=== PATIENT | male | born 1930 | race Caucasian/White ===

== ENCOUNTER 2016-07-19 12:25 | Inpatient (IN) | payer OTHER ==
--- NOTE | ~2016-07-19 | CN ---
Consultation Report [facility] [address] [facility] [place]. [address] NAME: VALENCIA LI : 30 STATUS : ADM IN [facility]#: [id number] AGE: 86 ADM/REG DATE : 07/19/16 MR#: [id number] REPORT SERV DATE: 07/21/16 DICTATED BY: ERASMO MENDEZ DATE: 07/21/16 REPORT STATUS : Draft TRANSCRIBED BY: MODL DATE: 07/21/16 DATE OF CONSULTATION: HISTORY OF PRESENT ILLNESS: 86-year-old white male, patient of Dr. Kelly, who is supposed to have a lung biopsy done for concern of lung cancer. The patient has been having pneumonia off and on since the end of March. He has been on several rounds of antibiotics without complete resolution. He comes to the hospital because of weakness, some weight loss, as well as some shortness of breath and cough. He does have a long-term smoking history of at least 30 years, as much as one pack per day, but quit back in 1989. He has had asbestos exposure working, on-the-job exposure. REVIEW OF SYSTEMS: No fevers, chills, or sweats. No vomiting or belly pain. No rash. History is somewhat limited due to patient not being a great historian. PAST MEDICAL HISTORY: Coronary artery disease, CABG, stroke, dyslipidemia, possible COPD, abdominal aortic aneurysm, hypertension, pneumonia, skin cancer. PAST SURGICAL HISTORY: Cataract surgery, CABG, bilateral inguinal hernia repair, lumbosacral back fusion, melanoma removal. FAMILY HISTORY: Coronary artery disease, cancer, hypertension, diabetes, and stroke. ALLERGIES: LEVAQUIN. HOME MEDICATIONS: Reviewed. SOCIAL HISTORY: Former smoker. No alcohol. No drugs. The patient is . PHYSICAL EXAMINATION: VITAL SIGNS: Per nursing flow sheet. GENERAL: No acute distress. Very hard of hearing. HEENT: Normocephalic, atraumatic. NECK: No palpable lymph nodes or masses. Trachea midline. HEART: Regular rate and rhythm. No murmurs. LUNGS: Diminished bilaterally. No wheezes. No accessory muscle use. GI: Soft, nontender, nondistended. EXTREMITIES: No edema, cyanosis, or clubbing. NEURO: GCS 15. LABORATORIES: Radiology studies reviewed. ASSESSMENT AND PLAN: 1. Right pleural effusion. Consultation Report [address] [address] NAME: VALENCIA LI : 30 STATUS : ADM IN [facility]#: [id number] AGE: 86 ADM/REG DATE : 07/19/16 MR#: [id number] REPORT SERV DATE: 07/21/16 DICTATED BY: ERASMO MENDEZ DATE: 07/21/16 REPORT STATUS : Draft TRANSCRIBED BY: MODL DATE: 07/21/16 2. Right lung mass-possible post-obstructive pneumonia, possible lung mass. 3. Mediastinal and hilar lymphadenopathy. 4. Elevated ionized calcium. The patient apparently is on Plavix as an outpatient. He has recently stopped the medicine, so we will have to hold off for several days before considering bronchoscopy because of bleeding risk. However, the patient does have a right-sided pleural effusion and we will proceed with thoracentesis. Risks and benefits of the procedure discussed with the patient. The patient is agreeable with the procedure. We will plan on doing this tomorrow. We will send off for labs routine, culture and cytology. We will send off a serum lab for parathyroid hormone-related peptide to see if there is any type of paraneoplastic syndrome. The patient is on empiric antibiotics per the hospitalist. We will continue to follow. CEP/MODL Erasmo Mendez DO / [id number] CC: MD Shayan Matias PA-C
--- NOTE | ~2016-07-19 | DS ---
Discharge Summary [facility] [address] [place]. [address] NAME: VALENCIA LI : 30 STATUS : DIS IN PAT#: [id number] AGE: 86 ADM/REG DATE : 07/19/16 MR#: [id number] REPORT SERV DATE: 07/24/16 DICTATED BY: МАРИЯ JEAN-BAPTISTE DATE: 07/23/16 REPORT STATUS : Draft TRANSCRIBED BY: MODL DATE: 07/23/16 ADMISSION DATE: 07/19/2016 DISCHARGE DATE: 07/23/2016 CHIEF COMPLAINT ON ADMISSION: "Pneumonia." DISCHARGING DIAGNOSES: 1. Stage IV lung cancer. 2. Small pleural effusion with pleural fluid positive for malignancy. 3. Pneumonia, possible postobstructive process. 4. Mild hypercalcemia, which resolved with IV resuscitation. 5. History of coronary artery disease, CABG. 6. Severe chronic obstructive pulmonary disease with hypoxic respiratory failure. HISTORY OF PRESENT ILLNESS: Please see full H and P by Dr. Arnulfo Garza for details regarding initial presentation. HOSPITAL COURSE: 1. Stage IV lung cancer of the right lung. The patient was admitted to the hospital with possible lung mass. He was scheduled to undergo an outpatient bronchoscopy after Plavix washout. Here, he did have a CT scan of chest, abdomen, and pelvis after discussion with Dr. Gonzalez from Oncology, who family chooses to follow up with. The CT of chest, abdomen, and pelvis with contrast did show small pleural effusion. Pulmonary Medicine was consulted. He did have a thoracentesis on 07/22/2016, which 600 mL of yellow fluid was removed. This did not on visual inspection appear malignant, thus he was scheduled for bronchoscopy today. However, the patient's pleural fluid was noted to be positive for malignant cells today. Bronchoscopy was aborted after airway infection. At this point, the patient will follow up next week with Dr. Gonzalez in the office after final pathology had resulted and the patient can be addressed by Dr. Gonzalez regarding further plans. In the interim, he will be discharged home with home health to improve functional status and continue to maintain the patient's current strength. I have had long discussions with the patient regarding options as well as plans to follow up with Dr. Gonzalez that will be arranged. 2. Severe COPD with hypoxic respiratory failure. The patient will follow up with his rn stars, Dr. Kelly as an outpatient. 3. Possible postobstructive process. On visual exam, it does not appear that there was an obvious obstruction. He did have possible pneumonia on chest x-ray and CT. He does have BAL cultures cooking. He was treated with ceftriaxone and azithromycin here after discussion with Dr. Mendez given the patient's allergy to Levaquin, and we will treat him for a full course as an outpatient with Augmentin. Blood cultures here have been negative. 4. Mild hypercalcemia on admission. The patient calcium has resolved to normal after IV fluid resuscitation. 5. History of CABG and coronary artery disease. The patient will be resumed on aspirin and Plavix at the time of discharge. 6. Hypertension. The patient's blood pressure is in the 150s on admission. During this Discharge Summary [address] [address] NAME: VALENCIA LI : 30 STATUS : DIS IN PAT#: [id number] AGE: 86 ADM/REG DATE : 07/19/16 MR#: [id number] REPORT SERV DATE: 07/24/16 DICTATED BY: МАРИЯ JEAN-BAPTISTE DATE: 07/23/16 REPORT STATUS : Draft TRANSCRIBED BY: MODSonia DATE: 07/23/16 hospitalization, he did have elevated blood pressures, this may be related to steroids. Recommend outpatient followup instead of starting him on blood pressure medication at this time. DISCHARGE MEDICATIONS: Atorvastatin 40 mg daily, prednisone taper, Augmentin 875 for five days p.o. b.i.d., aspirin 81 mg, Plavix 75 mg daily. Followup will be with Dr. Kelly and Dr. Gonzalez. PERTINENT LABORATORY DATA: White blood cell count 9.7, last checked on the with hemoglobin 11.9, platelet count of 242. BMP grossly unremarkable. PERTINENT IMAGING: In this admission: 1. CT of chest, abdomen, and pelvis as well with contrast, impression:. a. Large irregular 9 x 8 cm mass-like consolidation in the central posterior right upper lobe with areas of extension into the right middle and superior segment of the right lower lobes. It is unclear how much of this represents true malignant mass versus areas of pneumonic consolidation. b. Free-flowing right small pleural effusion. c. Mild right paratracheal mediastinal adenopathy concerning for N2 disease and upper limits of normal, but potentially involved right supraclavicular lymph nodes, concerning for possible N3 disease. d. Severe COPD. e. [id number] aortic valvular calcifications without aortic aneurysm. Severe aortic atherosclerosis. 2. CT of abdomen and pelvis:. a. No evidence of intraabdominal or pelvic metastatic disease. b. Small quantity of pelvic ascites of uncertain etiology. c. Diffuse colonic diverticulosis without diverticulitis. d. Small infrarenal abdominal aortic aneurysm of 3.7 cm. Time spent on this discharge including discussion with Dr. Mendez and Dr. Gonzalez is greater than 30 minutes. DNK/MODSonia Мария Jean-Baptiste MD / [id number] CC: MD Shayan Matias PA-C
--- NOTE | ~2016-07-19 | OP ---
Record Of Operation [facility] [address] [address] NAME: VALENCIA LI : 30 STATUS : ADM IN PAT#: [id number] AGE: 86 ADM/REG DATE : 07/19/16 MR#: [id number] REPORT SERV DATE: 07/23/16 DICTATED BY: ERASMO MENDEZ DATE: 07/23/16 REPORT STATUS : Draft TRANSCRIBED BY: MODL DATE: 07/23/16 DATE OF PROCEDURE: 07/23/2016 PROCEDURE: Bronchoscopy with BAL and endobronchial ultrasound. SPECIMENS: BAL, right upper lobe. DESCRIPTION: Informed consent was obtained from the patient, and risks and side effects were discussed with him and the family and all questions were answered. The patient was brought to the bronchoscopy suite and intubated with endotracheal tube and sedated by Anesthesia. Fiberoptic scope was inserted into the endotracheal tube to visualize the middle and lower portions of the trachea and john paul, which appeared normal. Left and right bronchial tree was surveyed, and all segments were open and free of any endobronchial lesion or mucosal irregularity. A BAL was obtained from the right upper lobe, there appeared to be some thin secretions in this region. I started surveying with endobronchial ultrasound subsequent to this and looking at level 7 and level 4R lymph nodes. Around that time, Pathology called and we got positive fluid results on the thoracentesis yesterday, showing malignancy, so no biopsy specimens of lymph nodes or any transbronchial biopsies were done. The only specimen we have is a BAL of the right upper lobe. Case was discussed with Dr. Jonas. CEP/TONNYL Erasmo Mendez DO / [id number] CC: MD Shayan Matias PA-C
--- NOTE | ~2016-07-19 | HP ---
History And Physical [address] [id number] [place]. [address] NAME: VALENCIA LI : 30 STATUS : ADM IN [facility]#: [id number] AGE: 86 ADM/REG DATE : 07/19/16 MR#: [id number] REPORT SERV DATE: 07/19/16 DICTATED BY: MONI SPEARS DATE: 07/19/16 REPORT STATUS : Draft TRANSCRIBED BY: MODL DATE: 07/19/16 DATE OF ADMISSION: 07/19/2016 CHIEF COMPLAINT: Pneumonia. HISTORY OF PRESENT ILLNESS: The patient is an 86-year-old male. He has a past medical history significant for coronary artery disease. He states status post CABG. He has other cardiac problems. 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 His oncology social work is Dr. Davis. He also has some degree of heart failure. Does not know his EF. He also has hyperlipidemia. He has had a prior CVA, and he has had some type of "kidney problems." He has a remote history of gallstone pancreatitis. He presents today with shortness of breath and question recurrent pneumonia. The patient has most recently been diagnosed with lung cancer. He states that around February of last year, he began having pneumonias recurrent. He would seem to take medicines, they would clear up and come right back. He has been seeing Dr. Kelly. His brings CT scan, which showed a mass and obstructive pneumonia. The patient had been scheduled for biopsy. However apparently, there was some problem with continuing his Plavix, so it is currently rescheduled although, she does not know the exact time. Initial diagnosis was at the end of May. He presented with recurrent symptoms. PAST MEDICAL HISTORY: As covered above. PAST SURGICAL HISTORY: He has had CABG, back surgery, hernia surgery, carotid surgery by Dr. Rachel, and cholecystectomy. CURRENT MEDICATIONS: Aspirin 81, Lipitor 40, and Plavix 75. ALLERGIES: LEVAQUIN. FAMILY HISTORY: Both parents . Father had a CVA. Mother had throat cancer. SOCIAL HISTORY: He is a previous smoker up until approximately 1989. No EtOH. REVIEW OF SYSTEMS: HEENT: No complaints. CARDIOVASCULAR: Currently no complaints. PULMONARY: As covered in HPI. GI: No nausea or vomiting. NEURO/MUSCULOSKELETAL: He complains of just generalized weakness. Otherwise 14-point review of systems is negative. PHYSICAL EXAMINATION: VITAL SIGNS: BP 157/67, temperature 97.3, pulse 70, respirations 16, sat 94%. GENERAL: He is awake, alert, oriented, and pleasant. HEENT: Normocephalic, atraumatic. Sclerae nonicteric. History And Physical [address] [place]. [address] NAME: VALENCIA LI : 30 STATUS : ADM IN PAT#: [id number] AGE: 86 ADM/REG DATE : 07/19/16 MR#: [id number] REPORT SERV DATE: 07/19/16 DICTATED BY: MONI SPEARS DATE: 07/19/16 REPORT STATUS : Draft TRANSCRIBED BY: HERNAN DATE: 07/19/16 NECK: Supple. HEART: Regular rate and rhythm. LUNGS: He has coarse breath sounds, right upper lobe. Does not appear to be any failure. ABDOMEN: Thin, benign. EXTREMITIES: No significant clubbing, cyanosis, or edema. LABORATORY DATA: Sodium 140, potassium 4.2, chloride 102, CO2 of 29, BUN and creatinine at 37 and 1.2 with a glucose of 117. Troponins 0.03. BNP is 223.7. White count is 6.8, H and H 13. 1 and 40.2, platelets 268. ABG showed a pH of 739, CO2 of 43, O2 63, bicarb 26, sat 91%. Ionized calcium was slightly high at 5.7. Calcium, however was 9.5. Chest x-ray showed right upper lobe infiltrate, question mass. ASSESSMENT: The patient with known lung cancer with CT findings of a bulky right perihilar mass density surrounding the right upper lobe bronchus and lateral to the right middle lobe bronchus. Peripheral changes seen which may be postobstructive pneumonitis. This was per CT scan 06/17/2016. Chronic medical problems as listed above. PLAN: 1. The patient has been admitted. 2. He states he has not been hospitalized since February for this pneumonia, but we will treat aggressively. 3. Nebulizers, O2, bronchodilators. 4. Cultures. 5. Hold Plavix. 6. I discussed with the patient the need to progress with his evaluation and treatment as again, he has had multiple recurrent pneumonias since February. We will check to see if Dr. Kelly has privileges here at [facility]. He does not need acute intervention this evening. TLF/MODL Moni Spears M.D. / [id number] CC: MD Shayan Wright II, PA-C
[2016-07-19 12:00] LABS: BASOPHILS 0.1 %; BASOPHILS ABSOLUTE 0.01 10/3/uL (0.0-0.16); EOSINOPHILS 0.1 %; EOSINOPHILS ABSOLUTE 0.01 10/3/uL (0.0-0.53); ER CBC TAT 0 Hrs 05 Mins; HEMOGLOBIN 13.1 g/dL (13.6-17.8); IMMATURE GRANULOCYTES 0.1 %; IMMATURE GRANULOCYTES ABSOLUTE 0.01 10/3/uL (0.0-0.11); LYMPHOCYTES 12.1 %; LYMPHOCYTES ABSOLUTE 0.82 10/3/uL (0.67-4.30); MEAN CORPUS HGB CONC 32.6 g/dL (32.0-36.0); MEAN CORPUSCULAR VOLUME 85.9 fL (80-100); MEAN PLATELET VOLUME 9.6 fL (9.2-13.0); MONOCYTES 9.4 %; MONOCYTES ABSOLUTE 0.64 10/3/uL (0.21-1.20); NEUTROPHILS 78.2 %; NEUTROPHILS ABSOLUTE 5.29 10/3/uL (2.02-8.40); PLATELET COUNT 268 10/3/uL (150-400); RBC DISTRIBUTION WIDTH 14.1 % (12.0-16.0); WHITE BLOOD CELLS 6.8 10/3/uL (4.5-10.5)
[2016-07-19 12:03] LABS: HEMATOCRIT 40.2 % (40.0-51.0); MANUAL DIFF NO %; RED CELL COUNT 4.68 10/6/uL (4.7-6.1)
[2016-07-19 12:06] LABS: INTERNATIONAL NORMAL RATI 1.1 UNITS (-); PARTIAL THROMBO TIME 28.6 SEC (22.5-37.2)
[2016-07-19 12:16] LABS: BUN (BLOOD UREA NITROGEN) 37 MG/DL (6-23); CALCIUM, SERUM 9.5 MG/DL (8.5-10.4); CHEST PAIN PROFILE TAT 0 Hrs 21 Mins; CHLORIDE, SERUM 102 MMOL/L (96-112); CO2 (CARBON DIOXIDE) 29 MMOL/L (24-34); CREATININE 1.21 MG/DL (0.70-1.30); GFR AFRICAN AMERICAN 62 ML/MIN (>=60); GFR NON AFRICAN AMERICAN 54 ML/MIN (>=60); GLUCOSE, SERUM 117 MG/DL (60-99); POTASSIUM, SERUM 4.2 MMOL/L (3.5-5.3); SODIUM, SERUM 140 MMOL/L (135-148); TROPONIN I 0.03 NG/ML (<0.05)
[~2016-07-19 12:25] MED LIST: ASA5GR PO; ASAB PO; BACDS PO; LEVAQUIN750 MG PO; LIPITOR80 MG PO; PLAVIX PO; PRIN10 PO; PROTONIX PO; PROVHFA INH; SYMBICORT 160/41 INH INH; ULTRAM50 PO
[2016-07-19] MEDS ORDERED: HALF81 PO (13:23)
[2016-07-19] MEDS ORDERED: LIPITOR40 PO (13:23)
[2016-07-19] MEDS ORDERED: PLAVIX PO (13:23)
[2016-07-19 21:07] LABS: BASOPHILS 0.4 %; BASOPHILS ABSOLUTE 0.02 10/3/uL (0.0-0.16); EOSINOPHILS 0 %; HEMOGLOBIN 14.6 g/dL (13.6-17.8); IMMATURE GRANULOCYTES 0.2 %; IMMATURE GRANULOCYTES ABSOLUTE 0.01 10/3/uL (0.0-0.11); LYMPHOCYTES 16.2 %; LYMPHOCYTES ABSOLUTE 0.81 10/3/uL (0.67-4.30); MEAN CORPUS HGB CONC 32.4 g/dL (32.0-36.0); MEAN CORPUSCULAR HEMOGLOB 28.1 pg (26.0-34.0); MEAN CORPUSCULAR VOLUME 86.7 fL (80-100); MONOCYTES 1.8 %; MONOCYTES ABSOLUTE 0.09 10/3/uL (0.21-1.20); NEUTROPHILS 81.4 %; NEUTROPHILS ABSOLUTE 4.06 10/3/uL (2.02-8.40); PLATELET COUNT 325 10/3/uL (150-400); RBC DISTRIBUTION WIDTH 13.9 % (12.0-16.0)
[2016-07-19 21:09] LABS: HEMATOCRIT 45.1 % (40.0-51.0); MANUAL DIFF NO %
[2016-07-21 05:28] LABS: BASOPHILS 0.1 %; BASOPHILS ABSOLUTE 0.01 10/3/uL (0.0-0.16); EOSINOPHILS 0 %; HEMOGLOBIN 11.7 g/dL (13.6-17.8); IMMATURE GRANULOCYTES 0.3 %; IMMATURE GRANULOCYTES ABSOLUTE 0.03 10/3/uL (0.0-0.11); LYMPHOCYTES 7.8 %; LYMPHOCYTES ABSOLUTE 0.92 10/3/uL (0.67-4.30); MEAN CORPUSCULAR HEMOGLOB 27.3 pg (26.0-34.0); MEAN CORPUSCULAR VOLUME 85.3 fL (80-100); MEAN PLATELET VOLUME 10.2 fL (9.2-13.0); MONOCYTES 5.4 %; MONOCYTES ABSOLUTE 0.63 10/3/uL (0.21-1.20); NEUTROPHILS 86.4 %; NEUTROPHILS ABSOLUTE 10.16 10/3/uL (2.02-8.40); PLATELET COUNT 260 10/3/uL (150-400); RBC DISTRIBUTION WIDTH 14.1 % (12.0-16.0); RED CELL COUNT 4.29 10/6/uL (4.7-6.1)
[2016-07-21 05:32] LABS: HEMATOCRIT 36.6 % (40.0-51.0); MANUAL DIFF NO %; WHITE BLOOD CELLS 11.8 10/3/uL (4.5-10.5)
[2016-07-21 05:44] LABS: BUN (BLOOD UREA NITROGEN) 34 MG/DL (6-23); CALCIUM, SERUM 8.9 MG/DL (8.5-10.4); CHLORIDE, SERUM 109 MMOL/L (96-112); CO2 (CARBON DIOXIDE) 27 MMOL/L (24-34); CREATININE 1.09 MG/DL (0.70-1.30); GFR AFRICAN AMERICAN 71 ML/MIN (>=60); GFR NON AFRICAN AMERICAN 61 ML/MIN (>=60); SODIUM, SERUM 143 MMOL/L (135-148)
[2016-07-21 05:49] LABS: ALBUMIN 2.1 G/DL (3.5-5.0); GLUCOSE, SERUM 144 MG/DL (60-99); PHOSPHORUS, SERUM 2.4 MG/DL (2.5-4.5)
[2016-07-22 05:03] LABS: BASOPHILS 0.1 %; BASOPHILS ABSOLUTE 0.01 10/3/uL (0.0-0.16); EOSINOPHILS 0 %; HEMATOCRIT 36.7 % (40.0-51.0); HEMOGLOBIN 11.9 g/dL (13.6-17.8); IMMATURE GRANULOCYTES 0.9 %; IMMATURE GRANULOCYTES ABSOLUTE 0.09 10/3/uL (0.0-0.11); LYMPHOCYTES 7.9 %; LYMPHOCYTES ABSOLUTE 0.77 10/3/uL (0.67-4.30); MEAN CORPUS HGB CONC 32.4 g/dL (32.0-36.0); MEAN CORPUSCULAR HEMOGLOB 27.9 pg (26.0-34.0); MEAN CORPUSCULAR VOLUME 85.9 fL (80-100); MEAN PLATELET VOLUME 10.1 fL (9.2-13.0); MONOCYTES 6.7 %; MONOCYTES ABSOLUTE 0.65 10/3/uL (0.21-1.20); NEUTROPHILS 84.4 %; NEUTROPHILS ABSOLUTE 8.19 10/3/uL (2.02-8.40); PLATELET COUNT 242 10/3/uL (150-400); RBC DISTRIBUTION WIDTH 14.1 % (12.0-16.0); RED CELL COUNT 4.27 10/6/uL (4.7-6.1); WHITE BLOOD CELLS 9.7 10/3/uL (4.5-10.5)
[2016-07-22 05:07] LABS: MANUAL DIFF NO %
[2016-07-22 17:58] LABS: GLUCOSE BODY FL (NOT ORD) 138 MG/DL; LDH BODY FLUID (NOT ORD) 343 U/L; PROTEIN BODY FLUID 1.9 G/DL
[2016-07-22 18:11] LABS: BD FL SOURCE (NOT ORD) RIGHT PLEURAL FLUID
[2016-07-22 19:31] LABS: BF TOTAL CELL CT (NOT ORD 446 /MM3; BODY FLUID RBC (NOT ORD) 339 /MM3
[2016-07-22 19:35] LABS: BD FL LYMPH (NOT ORD) 32 %; BD FL SOURCE (NOT ORD) RIGHT PLEURAL FLUID; BF BASO (NOT OF) 0 %; BF LARGE MONONUCLEAR 60 %; BODY FLUID EOS (NOT ORD) 0 %; BODY FLUID SEG (NOT ORD) 8 %
[2016-07-23 05:28] LABS: CALCIUM, SERUM 8.4 MG/DL (8.5-10.4); CHLORIDE, SERUM 105 MMOL/L (96-112); CO2 (CARBON DIOXIDE) 27 MMOL/L (24-34); GFR AFRICAN AMERICAN 79 ML/MIN (>=60); GFR NON AFRICAN AMERICAN 68 ML/MIN (>=60); GLUCOSE, SERUM 124 MG/DL (60-99); POTASSIUM, SERUM 3.9 MMOL/L (3.5-5.3); SODIUM, SERUM 141 MMOL/L (135-148)
[2016-07-23 05:29] LABS: BUN (BLOOD UREA NITROGEN) 28 MG/DL (6-23)
[2016-07-23 13:46] LABS: BD FL SOURCE (NOT ORD) BAL; BF TOTAL CELL CT (NOT ORD 659 /MM3; BODY FLUID RBC (NOT ORD) 1000 /MM3
[2016-07-23 13:56] LABS: BD FL LYMPH (NOT ORD) 7 %; BF BASO (NOT OF) 0 %; BF LARGE MONONUCLEAR 78 %; BODY FLUID EOS (NOT ORD) 0 %; BODY FLUID SEG (NOT ORD) 15 %
[2016-07-23] MEDS ORDERED: P10 PO (16:47)
[2016-07-23] MEDS ORDERED: AUG875 PO (16:48)
== END 2016-07-23 18:03 | disposition home health service (06) | DRG 166 ==
LOC: ER 12:25 → 6NO 17:39
PROVIDERS: Emergency Medicine; Internal Medicine; Internal Medicine Pulmonary Disease; Physician Assistant Medical
PROC: 0W993ZX Drainage of Right Pleural Cavity, Percutaneous Approach, Diagnostic (ICD-10-PCS; 2016-07-22)
PROC: 0B9C8ZX Drainage of Right Upper Lung Lobe, Via Natural or Artificial Opening Endoscopic, Diagnostic (ICD-10-PCS; principal; 2016-07-23 10:33)
DX: C34.11 Malignant neoplasm of upper lobe, right bronchus or lung (principal); J18.9 Pneumonia, unspecified organism; J96.91 Respiratory failure, unspecified with hypoxia; J91.0 Malignant pleural effusion; J44.9 Chronic obstructive pulmonary disease, unspecified; Z95.1 Presence of aortocoronary bypass graft; E78.5 Hyperlipidemia, unspecified; I25.10 Atherosclerotic heart disease of native coronary artery without angina pectoris; E83.52 Hypercalcemia; Z79.82 Long term (current) use of aspirin; Z79.02 Long term (current) use of antithrombotics/antiplatelets
CPT/HCPCS: 36600; 71010; 71020; 71260; 74177; 80048; 80069; 81235; 82330; 82803; 82945; 82947; 83519; 83615; 83735; 83880; 83986; 84132; 84145; 84155; 84157; 84295; 84484; 85014; 85025; 85610; 85730; 87015; 87040; 87070; 87102; 87116; 87205; 87449; 88112; 88305; 88360; 89051; 93005; 94640; 96374; 97161-GP; 99285; A9270-GY; J0360; J0456; J2250; J2370; J2930; J3010; Q9967

== ENCOUNTER 2016-08-05 08:03 | Day surgery (SDC) | payer OTHER ==
--- NOTE | ~2016-08-05 | CN ---
Consultation Report [facility] [address] [place]. [address] NAME: VALENCIA YOUNG : 30 STATUS : REG [facility]#: [id number] AGE: 86 ADM/REG DATE : 08/05/16 MR#: [id number] REPORT SERV DATE: 08/06/16 DICTATED BY: CHAD AYALA DATE: 08/05/16 REPORT STATUS : Draft TRANSCRIBED BY: MODL DATE: 08/05/16 CONSULTATION REPORT DATE OF CONSULTATION: Dear Dr. Gonzalez and Dr. Erasmo Mendez: Thank you for requesting my opinion regarding evaluation and management of Mr. Valencia Young's right-sided malignant pleural effusion and need for additional tissue for molecular analysis. Mr. Young is an extremely pleasant 86-year-old gentleman, originally a patient of Dr. Kelly, and now the patient of Dr. Erasmo Mendez who has been suffering from multiple respiratory exacerbations, originally thought to have pneumonia without any significant improvement. The patient was ultimately found to have a 9 cm mass and a right- sided parapneumonic effusion, which was tapped and positive for adenocarcinoma. According to Dr. Margarito Gonzalez and Dr. Benjamin Bustillo, there was not enough cellularity to test for molecular analysis and PD-L1 Keytruda testing. The patient was sent for formal evaluation for right-sided PleurX catheter placement. A bedside ultrasound was performed during the history and physical, and there was a small trace amount of pleural fluid, less than 1 cm and is suboptimal on window for PleurX catheter placement. I discussed this case in more detail with Dr. Gonzalez. He asked for us to proceed with an EBUS bronchoscopy to obtain more tissue. The patient states that he has chronic shortness of breath, well localized to the chest. He complains of associated symptoms of weakness, weight loss, hypoxemia, and cough. He has a known smoking history of at least 30-pack years and quit in 1989 and had on the job asbestos exposure. REVIEW OF SYSTEMS: A detailed 14-point review of systems was completed. Pertinent positives and negatives are listed above. PAST MEDICAL HISTORY: 1. Coronary artery disease. 2. Stroke. 3. Dyslipidemia. 4. Clinical COPD. 5. Abdominal aortic aneurysm. 6. Hypertension. 7. Pneumonia. 8. Skin cancer. 9. 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 PAST SURGICAL HISTORY: 1. Cataract surgery. 2. CABG. Consultation Report [address] [place]. [address] NAME: VALENCIA YOUNG : 30 STATUS : REG [facility] PAT#: [id number] AGE: 86 ADM/REG DATE : 08/05/16 MR#: [id number] REPORT SERV DATE: 08/06/16 DICTATED BY: CHAD AYALA DATE: 08/05/16 REPORT STATUS : Draft TRANSCRIBED BY: HERNAN DATE: 08/05/16 3. Bilateral inguinal hernia repair. 4. Lumbosacral back fusion. 5. Melanoma removal. FAMILY HISTORY: Coronary artery disease, cancer, diabetes, hypertension, and stroke. ALLERGIES: LEVAQUIN. HOME MEDICATIONS: Reviewed and located in the paper chart. SOCIAL HISTORY: The patient is a former smoker, but quit in the , has at least a 30- pack-year smoking history. He has no history of alcohol or illicit drug abuse. He is and his is by the bedside. PHYSICAL EXAMINATION: Reviewed and located in the paper chart and signed off on. GENERAL: In no acute distress, able to communicate in full paragraphs at a time, chronically ill appearing, and hard of hearing. HEENT: Normocephalic and atraumatic. Pupils are equal, round, and reactive to light and accommodation. Posterior oropharynx is clear. NECK: No JVD. No LAD. Trachea midline. CARDIOVASCULAR: Regular rate and rhythm. S1 and S2 present. LUNGS: Diminished breath sounds throughout the right lung. No obvious wheezes or respiratory distress. GI: Soft, nontender, and nondistended. Positive bowel sounds. EXTREMITIES: No clubbing, cyanosis, or edema. SKIN: No lesions, rashes, or ulcers. NEUROLOGIC: 5/5 strength in the upper and lower extremities. Cranial nerves II through XII are intact. Gait not tested. DTRs not performed. DIAGNOSTIC DATA: CT scan of the chest on 07/20/2016 was personally reviewed by me and I agree with the following interpretation. 1. Large irregular 9 x 8 cm mass-like consolidation in the central posterior right lung field extending from the right upper lobe to the right middle lobe and superior segment of the right lower lobe. It is unclear how much of the malignant mass-like consolidation is a pneumonic consolidation, pneumonic adenocarcinoma, or associated with a postobstructive phenomenon. 2. Free flowing small right-sided pleural effusion. 3. Mild right-sided paratracheal mediastinal lymphadenopathy, concerning for N2 disease. 4. Severe COPD. 5. Kbxsfkwm-qx-maufsd aortic valvular calcifications without aortic aneurysm and severe aortic atherosclerosis. Lab values were reviewed and located in the electronic medical record. Consultation Report [address] [address] NAME: VALENCIA YOUNG : 30 STATUS : REG [facility] [place] PAT#: [id number] AGE: 86 ADM/REG DATE : 08/05/16 MR#: [id number] REPORT SERV DATE: 08/06/16 DICTATED BY: CHAD AYALA DATE: 08/05/16 REPORT STATUS : Draft TRANSCRIBED BY: HERNAN DATE: 08/05/16 ASSESSMENT AND PLAN: Mr. Valencia Young is an extremely pleasant 86-year-old gentleman with a significant past medical history of heavy tobacco abuse; asbestos exposure; coronary artery disease, status post coronary artery bypass graft; and newly diagnosed stage IV adenocarcinoma with malignant right-sided pleural effusion who presents for need for evaluation for PleurX catheter placement and molecular analysis. The patient underwent a bedside ultrasound by me and had a suboptimal window for PleurX catheter placement with less than 1 cm in window. The patient had been recently tapped. At this point, I contacted Dr. Margarito Gonzalez and discussed this case in detail. The patient had limited cellularity in his pleural fluid and may not have enough fluid for future molecular analysis including EGFR, KRAS, EML4, and EML4-ALK analysis. The patient would also need additional tissue for PD-L1 ligand testing for Keytruda. Given the limitations of the pleural fluid, we will proceed with EBUS bronchoscopy. Based on the CT scan, the patient could either have a CT- guided needle biopsy, EBUS bronchoscopy, or wait for reaccumulation and delay on further workup. After discussing in detail these options, we agreed to proceed forward with EBUS bronchoscopy as it carries minimal risk in terms of obtaining appropriate tissue sample and the lesion is fairly central. He tolerated the prior bronchoscopy by Dr. Mendez. The patient is aware that EBUS bronchoscopy is associated with potential life-threatening risks, including lung collapse, respiratory failure, and even life-threatening bleeding. RECOMMENDATIONS: A summary of my recommendations are as follows: 1. Trace amount of pleural fluid with a suboptimal window for PleurX catheter placement. 2. After discussing the case with Dr. Margarito Gonzalez, we agreed to proceed forward with EBUS bronchoscopy to obtain additional tissue for future molecular analysis and Ki PD- L1 ligand testing for Keytruda. 3. I discussed these issues with Dr. Christensen as well and the Pathology Team. Thank you for allowing me to participate in Mr. Young's care. ELLA/TONNYL Chad Ayala M.D. / [id number] CC: Bethany Romero PA-C Michael T Czarnecki, M.D. Benjamin R Nadeau, MD Chad E. Paxson, DO
--- NOTE | ~2016-08-05 | EGD ---
EGD REPORT [facility] [place] [address] [place]. [address] NAME: VALENCIA YOUNG : [birth year] STATUS : REG [facility]#: [id number] AGE: 86 ADM/REG DATE : 08/05/16 MR#: [id number] REPORT SERV DATE: 08/05/16 DICTATED BY: CONTRERAS AYALA DATE: 08/05/16 REPORT STATUS : Draft [facility]ANS[facility]: [facility] DATE: 08/05/16 Pulmonology Patient Name: Valencia Young Procedure Date: 08/05/2016 10:00 AM Date of : 1930 Attending MD: NUBIA AYALA MD Procedure Date No Time: 08/05/2016 Procedure: EBUS Indications: Need for additional tissue for molecular analysis Providers: NUBIA AYALA MD Referring MD: Margarito Gonzalez Medicines: Lidocaine 2% 20 mL Complications: No immediate complications Procedure: Pre-Anesthesia Assessment: - ASA Grade Assessment: IV - A patient with severe systemic disease that is a constant threat to life. - After reviewing the risks and benefits, the patient was deemed in satisfactory condition to undergo the procedure. - A History and Physical has been performed. Patient meds and allergies have been reviewed. The risks and benefits of the procedure and the sedation options and risks were discussed with the patient. All questions were answered and informed consent was obtained. Patient identification and proposed procedure were verified prior to the procedure by the physician and the nurse in the pre-procedure area in the procedure room. Mental Status Examination: alert and oriented. Airway Examination: normal oropharyngeal airway. Respiratory Examination: poor air movement. CV Examination: normal and RRR, no murmurs, no S3 or S4. ASA Grade Assessment: IV - A patient with severe systemic disease that is a constant threat to life. After reviewing the risks and benefits, the patient was deemed in satisfactory condition to undergo the procedure. The anesthesia plan was to use general anesthesia. Immediately prior to administration of medications, the patient was re-assessed for adequacy to receive sedatives. The heart rate, respiratory rate, oxygen saturations, blood pressure, adequacy of pulmonary ventilation, and response to care were monitored throughout the procedure. The physical status of the patient was re-assessed after the procedure. After obtaining informed consent, the BF [id number] was introduced through the mouth, via the endotracheal tube (the patient was intubated for the procedure) and EGD REPORT [address] [address] NAME: VALENCIA YOUNG : [birth year] STATUS : REG [facility] PAT#: [id number] AGE: 86 ADM/REG DATE : 08/05/16 MR#: [id number] REPORT SERV DATE: 08/05/16 DICTATED BY: CONTRERAS AYALA DATE: 08/05/16 REPORT STATUS : Draft TRANSCRIBED BY: [employer] DATE: 08/05/16 advanced to the tracheobronchial tree. the Bronchoscope was introduced through the and advanced to the. The patient tolerated the procedure well. Findings: The endotracheal tube is in good position. The visualized portion of the trachea is of normal caliber. The john paul is sharp. The tracheobronchial tree was examined to at least the first subsegmental level. Bronchial mucosa and anatomy are normal; there are no endobronchial lesions, and no secretions. 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 Recommendation: - Await test results. - Chest X-ray. - Dr. Gonzalez is aware. - Patient has too little pleural fluid for pleurX catheter placement. Attending Participation: I personally performed the entire procedure. NUBIA AYALA MD 08/05/2016 10:45 AM This report has been signed electronically. Number of Addenda: 0 Note Initiated On: 08/05/2016 10:00 AM [place] [id number]
[~2016-08-05 08:03] MED LIST changes: +AUG875 PO; +HALF81 PO; +LIPITOR40 PO; +P10 PO
[2016-08-05 08:22] LABS: BASOPHILS 0.6 %; BASOPHILS ABSOLUTE 0.08 10/3/uL (0.0-0.16); EOSINOPHILS ABSOLUTE 0.26 10/3/uL (0.0-0.53); HEMATOCRIT 39.6 % (40.0-51.0); HEMOGLOBIN 12.8 g/dL (13.6-17.8); IMMATURE GRANULOCYTES 0.5 %; IMMATURE GRANULOCYTES ABSOLUTE 0.06 10/3/uL (0.0-0.11); LYMPHOCYTES 17.7 %; MEAN CORPUS HGB CONC 32.3 g/dL (32.0-36.0); MEAN CORPUSCULAR HEMOGLOB 27.5 pg (26.0-34.0); MEAN CORPUSCULAR VOLUME 85.2 fL (80-100); MEAN PLATELET VOLUME 9.9 fL (9.2-13.0); MONOCYTES 5.9 %; MONOCYTES ABSOLUTE 0.77 10/3/uL (0.21-1.20); NEUTROPHILS 73.3 %; NEUTROPHILS ABSOLUTE 9.53 10/3/uL (2.02-8.40); PLATELET COUNT 224 10/3/uL (150-400); RBC DISTRIBUTION WIDTH 14.8 % (12.0-16.0); RED CELL COUNT 4.65 10/6/uL (4.7-6.1)
[2016-08-05 08:25] LABS: MANUAL DIFF NO %
[2016-08-05 08:30] LABS: INTERNATIONAL NORMAL RATI 1.1 UNITS (-); PARTIAL THROMBO TIME 23.6 SEC (22.5-37.2); PROTIME (NOT ORD) 14.1 SEC (12.0-14.5)
== END 2016-08-05 23:59 | disposition home or self-care (01) ==
LOC: DMU 08:03
PROVIDERS: Internal Medicine
PROC: 0B9K8ZX Drainage of Right Lung, Via Natural or Artificial Opening Endoscopic, Diagnostic (ICD-10-PCS; 2016-08-05)
PROC: 07974ZX Drainage of Thorax Lymphatic, Percutaneous Endoscopic Approach, Diagnostic (ICD-10-PCS; principal; 2016-08-05 09:30)
PROC: BB4CZZZ Ultrasonography of Mediastinum (ICD-10-PCS; 2016-08-05 09:30)
DX: C34.81 Malignant neoplasm of overlapping sites of right bronchus and lung (principal); J91.0 Malignant pleural effusion; J44.9 Chronic obstructive pulmonary disease, unspecified; I25.10 Atherosclerotic heart disease of native coronary artery without angina pectoris; I71.4 Abdominal aortic aneurysm, without rupture; I10 Essential (primary) hypertension; I69.354 Hemiplegia and hemiparesis following cerebral infarction affecting left non-dominant side; E78.5 Hyperlipidemia, unspecified; E78.00 Pure hypercholesterolemia, unspecified; H91.93 Unspecified hearing loss, bilateral; Z87.01 Personal history of pneumonia (recurrent); Z95.1 Presence of aortocoronary bypass graft; Z98.890 Other specified postprocedural states; Z98.1 Arthrodesis status; Z85.820 Personal history of malignant melanoma of skin; Z82.49 Family history of ischemic heart disease and other diseases of the circulatory system; Z80.9 Family history of malignant neoplasm, unspecified; Z83.3 Family history of diabetes mellitus; Z82.3 Family history of stroke; Z87.891 Personal history of nicotine dependence; Z88.1 Allergy status to other antibiotic agents; Z79.82 Long term (current) use of aspirin; Z79.02 Long term (current) use of antithrombotics/antiplatelets; Z79.52 Long term (current) use of systemic steroids; Z79.899 Other long term (current) drug therapy; Z99.81 Dependence on supplemental oxygen; Z90.49 Acquired absence of other specified parts of digestive tract; Z97.4 Presence of external hearing-aid; Z98.41 Cataract extraction status, right eye; Z98.42 Cataract extraction status, left eye; Z96.1 Presence of intraocular lens
CPT/HCPCS: 71010; 85025; 85610; 85730; 88172; 88173; 88305; A9270-GY; C1725; J2405; J2710; J3010

== ENCOUNTER 2016-08-07 10:30 | Emergency (ER) | payer OTHER ==
[2016-08-07 11:47] LABS: BASOPHILS 0.2 %; BASOPHILS ABSOLUTE 0.02 10/3/uL (0.0-0.16); EOSINOPHILS 0.9 %; ER CBC TAT 0 Hrs 05 Mins; HEMATOCRIT 37.6 % (40.0-51.0); HEMOGLOBIN 12.3 g/dL (13.6-17.8); IMMATURE GRANULOCYTES 0.3 %; IMMATURE GRANULOCYTES ABSOLUTE 0.03 10/3/uL (0.0-0.11); LYMPHOCYTES 4.6 %; MANUAL DIFF NO %; MEAN CORPUS HGB CONC 32.7 g/dL (32.0-36.0); MEAN CORPUSCULAR HEMOGLOB 27.6 pg (26.0-34.0); MEAN CORPUSCULAR VOLUME 84.3 fL (80-100); MONOCYTES 5.7 %; MONOCYTES ABSOLUTE 0.62 10/3/uL (0.21-1.20); NEUTROPHILS 88.3 %; NEUTROPHILS ABSOLUTE 9.62 10/3/uL (2.02-8.40); PLATELET COUNT 186 10/3/uL (150-400); RBC DISTRIBUTION WIDTH 14.7 % (12.0-16.0); RED CELL COUNT 4.46 10/6/uL (4.7-6.1); WHITE BLOOD CELLS 10.9 10/3/uL (4.5-10.5)
[2016-08-07 11:52] LABS: ASCORBIC ACID (UR NOT ORDER) NEG (NEG); BILIRUBIN, URINE NEGATIVE (NEG); ER URINALYSIS TAT 0 Hrs 10 Mins; KETONE, URINE NEGATIVE (NEG); LEUKOCYTE ESTERASE(NOT OR NEG (NEG); NITRITE (URINE) NEG (NEG); WBC (NOT ORDERED) (RFLEX) 2 (0-5)
[2016-08-07 11:57] LABS: BUN (BLOOD UREA NITROGEN) 29 MG/DL (6-23); CHLORIDE, SERUM 103 MMOL/L (96-112); CO2 (CARBON DIOXIDE) 28 MMOL/L (24-34); CREATININE 1.52 MG/DL (0.70-1.30); GFR AFRICAN AMERICAN 47 ML/MIN (>=60); GFR NON AFRICAN AMERICAN 41 ML/MIN (>=60); GLUCOSE, SERUM 136 MG/DL (60-99); POTASSIUM, SERUM 4.2 MMOL/L (3.5-5.3); SODIUM, SERUM 142 MMOL/L (135-148)
== END 2016-08-07 13:43 | disposition home or self-care (01) ==
LOC: ER 10:30
PROVIDERS: Hospitalist
DX: R33.9 Retention of urine, unspecified (principal); N17.9 Acute kidney failure, unspecified; I10 Essential (primary) hypertension; Z87.01 Personal history of pneumonia (recurrent); Z87.891 Personal history of nicotine dependence; Z95.1 Presence of aortocoronary bypass graft; Z85.118 Personal history of other malignant neoplasm of bronchus and lung; Z88.1 Allergy status to other antibiotic agents; Z79.82 Long term (current) use of aspirin; Z79.52 Long term (current) use of systemic steroids; Z79.899 Other long term (current) drug therapy
CPT/HCPCS: 80048; 81001; 85025; 99283